=== PATIENT | male | born 1950 | race Caucasian/White ===

== ENCOUNTER → 2017-01-03 | Outpatient (CLI) | payer OTHER | LOC: ULTRA 08:01 | DX: R16.2 Hepatomegaly with splenomegaly, not elsewhere classified (principal); K76.89 Other specified diseases of liver ==

== ENCOUNTER → 2017-01-16 | Outpatient (CLI) | payer OTHER | LOC: CAT 08:57 | DX: K76.89 Other specified diseases of liver (principal) ==

== ENCOUNTER 2017-06-05 19:44 | Inpatient (IN) | payer OTHER ==
[~2017-06-05] VITALS: Ht 175.3 cm; Wt 102.6 kg
--- NOTE | ~2017-06-05 | EKG ---
[address] [place] [address] ELECTROCARDIOGRAM REPORT Name: TOGRACIA Parekh Room #: 210-P ADM IN M.R.#: [id number] Admission: 06/05/17 Attend Phys: Andrey Walsh MD Discharge: Date of : 54 Report #: [id number] THIS REPORT FOR: //name// [facility] Test Date: 2017-06-06 Test Time: 06:17:44 Pat Name: GRACIA ARIZA Department: Room: 210 P Gender: M Risk Consulting Treasury Director: AVELINA : 1950 Requested By: Guerda Klein Order Number: [id number] MD: Kyrie Mckenzie Measurements Intervals [place] Rate: 83 P: 76 VT: 217 QRS: -53 QRSD: 150 T: 98 QT: 434 QTc: 510 Interpretive Statements Sinus rhythm Borderline prolonged [place] interval RBBB and LAFB No previous ECG available for comparison Electronically Signed On 06-07-2017 7:37:16 ACUTE CARE NURSING ASSISTANT by Kyrie Mckenzie [email or web address] <ELECTRONICALLY SIGNED> By: Kyrie Mckenzie MD, [facility] 06/07/17 0737 0617 6 Kyrie Mckenzie MD, FACC /EPI
--- NOTE | ~2017-06-05 | EKG ---
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: YANIQUE : 1950 Requested By: Andriy Dillard Order Number: [id number] MD: Kyrie Mckenzie Measurements Intervals [place] Rate: 94 P: 95 MO: 218 QRS: -58 QRSD: 139 T: 93 QT: 393 QTc: 492 Interpretive Statements Sinus rhythm Prolonged [place] interval RBBB and LAFB Nonspecific T abnormalities, lateral leads Baseline wander in lead(s) V4 No previous ECG available for comparison Electronically Signed On 06-06-2017 9:27:24 SURVEYING TECHNICIAN by Kyrie Mckenzie [email or web address] <ELECTRONICALLY SIGNED> By: Kyrie Mckenzie MD, [facility] 12/926 46 46 Kyrie Mckenzie MD, [facility] /EPI
--- NOTE | ~2017-06-05 | 2DMMODE ---
[facility] [address] [place] [address] 2 D/M-MODE ECHOCARDIOGRAM Name: GRACIA ARIZA Room #: 210-P [facility] IN [facility]#: [id number] Admission: 06/05/17 Attend Phys: Andrey Walsh MD Discharge: Date of : 54 Date of Service: 06/06/17 1725 Report #: [id number] THIS REPORT FOR: //name// APPROVED REPORT Study performed: 06/06/2017 15:10:46 EXAM: Comprehensive 2D, Doppler, and color-flow Echocardiogram Patient Location: Bedside Room #: 210 BSA: 2.18 HR: 90 bpm BP: 120/55 mmHg Other Information Study Quality: Adequate Indications CAD Chest Pain 2D Dimensions RVDd: 39.64 mm LVEF(%): 13.66 (>50%) IVSd: 10.60 (7-11mm) LVOT Diam: 23.94 (18-24mm) LVDd: 60.08 mm PWd: 10.79 (7-11mm) Ascending Ao: 31.84 (22-36mm) LVDs: 56.35 (25-40mm) Aortic Root: 33.11 mm IVC: 21.00 mm Goetz's LVEF: 13.66 % Volumes Left Atrial Volume (Systole) Single Plane 4CH: 54.47 mL Single Plane 2CH: 76.80 mL LA ESV Index: 32.00 mL/m2 Aortic Valve AoV Peak Zoltan.: 1.94 m/s AO Peak Gr.: 15.13 mmHg LVOT Max P.73 mmHg LVOT Max V: 1.30 m/s KATJA Vmax: 3.00 cm2 Mitral Valve E/A Ratio: 1.1 MV Decel. Time: 211.97 ms [facility] [address] [place] [address] 2 D/M-MODE ECHOCARDIOGRAM Name: GRACIA ARIZA Room #: 210-[facility]#: [id number] Admission: 06/05/17 Attend Phys: Andrey Walsh MD Discharge: Date of : 54 Date of Service: 06/06/17 1725 Report #: [id number] MV E Max Zoltan.: 1.05 m/s MV A Zoltan.: 0.97 m/s MV PHT: 61.47 ms IVRT: 87.66 ms Pulmonary Valve PV Peak Zoltan.: 1.19 m/s PV Peak Gr.: 5.63 mmHg Pulmonary Vein P Vein S: 0.69 m/s P Vein A: 0.31 m/s P Vein D: 0.36 m/s P Vein A Dur.: 106.1 msec P Vein S/D Ratio: 1.92 Tricuspid Valve TR Peak Zoltan.: 2.75 m/s TR Peak Gr.: 30.33 mmHg PA Pressure: 40.00 mmHg Left Ventricle Left ventricle is mildly dilated. There is normal left ventricular wall thickness. Left ventricular systolic function is mild to moderately decreased. LVEF is 40%. This study is not technically sufficient to allow evaluation of the LV diastolic function. Right Ventricle Right ventricle is at the upper limits of normal. The right ventricular systolic function is normal. Atria Left atrium is at the upper limits of normal. The right atrium size is normal. Aortic Valve The aortic valve is normal in structure. Aortic valve is calcified. No aortic regurgitation is present. There is no aortic valvular stenosis. Mitral Valve The mitral valve is normal in structure. Mild to moderate mitral regurgitation. No evidence of mitral valve stenosis. Tricuspid Valve The tricuspid valve is normal in structure. There is trace to mild tricuspid regurgitation. Estimated PAP 40 mmHg. There is mild-moderate pulmonary hypertension. [facility] [address] [place] [address] 2 D/M-MODE ECHOCARDIOGRAM Name: GRACIA ARIZA Room #: 210-P [facility] IN [facility]#: [id number] Admission: 06/05/17 Attend Phys: Andrey Walsh MD Discharge: Date of : 54 Date of Service: 06/06/17 9385 Report #: [id number] Pulmonic Valve The pulmonary valve is normal in structure. Trace pulmonic regurgitation. Great Vessels The aortic root is normal in size. IVC is dilated and collapses >50% with inspiration. Pericardium There is no pericardial effusion. <Conclusion> Left ventricle is mildly dilated. Left ventricular systolic function is mild to moderately decreased. Right ventricle is at the upper limits of normal. Left atrium is at the upper limits of normal. The aortic valve is normal in structure. Aortic valve is calcified. Mild to moderate mitral regurgitation. <ELECTRONICALLY SIGNED> By: Milan Han MD 06/06/171724 24 24 Milan Han MD /INF
--- NOTE | ~2017-06-05 | CATHLAB ---
[facility] [place] [address] INVASIVE PROCEDURE REPORT Name: TOGRACIA Izabella Room #: 210-P [facility] IN [facility]#: [id number] Admission: 06/05/17 Attend Phys: Andrey Walsh MD Discharge: Date of : 54 Date of Service: 06/06/17 1738 Report #: [id number] THIS REPORT FOR: //name// APPROVED REPORT Patient Details Patient Status: Out-Patient Room #: The patient is a 67 year-old male Event Personnel Milan Han Resume Writer, Nicolasa Agudelo CVT Monitor, Junior Joy RN, Sachin Almanza Procedures Performed Left Heart Cath w/or w/o Coronaries [id number] [facility] BMS Revasc Grafts Single DIAG [id number] Indication Non-STEMI , Dyspnea, Unstable angina , Chest pain Risk Factors Obesity, Hypercholesterolemia, Hypertension, Tobacco History (), Dialysis Procedure Narrative The Right Groin^ was infiltrated with subcutaneous anesthesia. A PINNACLE 6FR Sheath #[id number] sheath was inserted into the RFA 4 FR^. Coronary angiography was performed using coronary diagnostic catheters. The right coronary system was accessed and visualized with a JR4 catheter. The left coronary system was accessed and visualized with a JL4 catheter. The left ventricle was accessed and visualized with a PIGTAIL catheter. Left ventricular/Aortic Valve gradient assessed via catheter pullback. Closure device was deployed with a 6 Fr Euphora NC RX 2.5 x 12 #[id number]. The patient tolerated the procedure well and there were no complications associated with the procedure. There was no hematoma. Intraoperative Conscious Sedation Sedation start time: 12.23 Case end Time: 13.09 Fentanyl mcg Versed mg Fluoro Time: 8.40 minutes Dose: DAP 26920.84 cGycm2 1589 mGy Contrast Type and Amount: Visipaque 190 ml [facility] [place] [address] INVASIVE PROCEDURE REPORT Name: GRACIA ARIZA Room #: 210-P [facility] IN ..#: [id number] Admission: 06/05/17 Attend Phys: Andrey Walsh MD Discharge: Date of : 54 Date of Service: 06/06/17 1738 Report #: [id number] Coronary Angiography The patient's coronary anatomy is right dominant. Diagnostic Cath Left Main Patent vessel, with no flow-limiting lesions. LAD Patent vessel, with mild diffuse disease in the proximal segment, 20%. Diagonal 1 Moderate size caliber vessel, supplies 2 branches as it travels down the anterolateral wall. There is a severe, discrete stenosis in the proximal segment, 80%. Circumflex Patent vessel, no flow limiting lesions. OM1 Small-caliber vessel, with no flow-limiting lesions. OM2 Moderate size caliber vessel, with no flow-limiting lesions. Right Coronary Dominant vessel, with no flow-limiting lesions. R PDA Patent vessel, with no flow-limiting lesions. RPLV Patent vessel, with no flow-limiting lesions. Left Ventriculography Left Ventriculography was not performed. Ejection Fraction was 40-45% based off patient's Echocardiogram. An LVEDP was measured and there is no gradient across the LVOT. Hemodynamics The aortic pressure is 110/62 mmHg with a mean of 78 mmHg. The left ventricular pressure is 116/11 mmHg with a mean of mmHg. The left ventricular end diastolic pressure is 23 mmHg. PCI Technique Lesion Anticoagulation was achieved with Heparin. Patient was preloaded with Plavix. Percutaneous coronary intervention was performed on the first diagnonal branch segment. The lesion stenosis prior to intervention was 80% with BETY 3 flow. A LAUNCHER 6FR EBU 3.5 #[id number] Guide Catheter was used to engage the LCA ostium. A Luge Wire .014 x 182CM #[id number] Interventional Guidewire was used to cross the lesion. BALLOON DILATION A Balloon catheter Simpleephora RX 2.5 x 12 #[id number] was inserted and inflated up to 8.00atm for 19seconds. Additional Inflation: 12.00atm for 35seconds. STENT DEPLOYMENT [facility] [address] [place] [address] INVASIVE PROCEDURE REPORT Name: GRACIA ARIZA Room #: 210-P [facility] IN [facility]#: [id number] Admission: 06/05/17 Attend Phys: Andrey Walsh MD Discharge: Date of : 54 Date of Service: 06/06/17 1738 Report #: [id number] A bare metal stent INTEGRITY RX 2.5 X 18 #[id number] was inserted and inflated up to 12.00atm for 35seconds. POST STENT DEPLOYMENT BALLOON DILATION A Balloon catheter Euphora NC RX 2.5 x 12 #[id number] was inserted and inflated up to 18.00atm for 18seconds. Final angiography reveals 0 % stenosis with BETY 3 flow. Conclusion 1. Successful insertion of a bare metal stent into the proximal segment of the first diagonal artery. 2. Right dominant system. 3. Recommend dual antiplatelet therapy. <ELECTRONICALLY SIGNED> By: Milan Han MD 06/06/178 37 37 Milan Han MD /INF
--- NOTE | ~2017-06-05 | HC ---
[facility] [place] [address] CONSULTATION Name: GRACIA ARIZA Room #: 210-P [facility] IN ..#: [id number] Admission: 06/05/17 Attend Phys: Andrey Walsh MD Discharge: Date of : 54 Report #: [id number] THIS REPORT FOR: //name// CC: [facility] physician/PCP Andrey Walsh DATE OF SERVICE: 06/06/2017 REASON FOR CONSULTATION: End-stage renal disease. HISTORY OF PRESENT ILLNESS: A 67-year-old patient well known to us after many years on dialysis, developed crushing chest pain yesterday, which persisted. He came to the Emergency Room, relieved somewhat by nitro, has recurred again today. Chest x-ray was clear, but troponin is elevating and he was hyperkalemic. PAST MEDICAL HISTORY: Polycystic kidney disease, end-stage renal disease, initiated dialysis 13 years ago. No previous coronary history. HOME MEDICATIONS: Aspirin 81 mg daily, Sensipar 30 mg daily, Rosalind-Rebeca 1 daily, hydrocodone p.r.n., Renvela 800 mg with meals t.i.d., warfarin 5 mg daily. SOCIAL HISTORY: Smokes 1 pack per day. His recently , he has been very depressed about that, she had been sick for some time. REVIEW OF SYSTEMS: GENERAL: He has been depressed and not feeling particularly well, but this is the first bit of chest pain he has had. EYES: Okay. ENT: Hearing okay, swallows okay. No mouth sores or ulcers. ENDOCRINE: No diabetes or thyroid disease. RESPIRATORY: He is not easily winded, but does not exert. CARDIAC: Chest pains as mentioned. No previous history of heart failure or palpitations. GASTROINTESTINAL: No nausea, vomiting or diarrhea. GENITOURINARY: He is making virtually no urine. PSYCHIATRIC: He has been depressed since the of his . NEUROLOGIC: No seizure, syncope, stroke. He does have some neuropathy symptoms. Extensive history taken from the patient at the bedside. PHYSICAL EXAMINATION: GENERAL: This is a reasonably well-appearing gentleman, in very mild distress. SKIN: Unremarkable. SKELETAL: Somewhat overweight. HEENT: Extraocular movements are full. Vision is intact. Hearing is intact. Mucous membranes moist. Tongue and buccal mucosa benign. [address] [address] CONSULTATION Name: GRACIA ARIZA Room #: 210-[facility]#: [id number] Admission: 06/05/17 Attend Phys: Andrey Walsh MD Discharge: Date of : 54 Report #: [id number] NECK: Supple, no carotid bruits. CHEST: Clear to auscultation. HEART: Regular. ABDOMEN: Soft, nontender without bruits, masses or organomegaly. EXTREMITIES: Show peripheral pulses slightly diminished. NEUROLOGIC: Grossly intact. LABORATORY DATA: Hemoglobin 11. Sodium 138, potassium was 6.4, down to 5.1 with treatment, chloride 95, bicarbonate 28, phosphorus 7.6. ASSESSMENT AND PLAN: 1. Acute coronary syndrome. Troponin up, crushing chest pain, multiple risk factors including smoking, longstanding dialysis. 2. End-stage renal disease, on dialysis for 13 years. 3. Cigarette smoking, a pack a day for many years. 4. History of polycystic kidney disease, status post bilateral nephrectomies. By: 0830 0951 Zac Bernstein MD /nt
[2017-06-05 19:45] VITALS: BP 152/67
[2017-06-05] MEDS ORDERED: COUMADIN 5 MG TA5 M1 PO (20:05)
[2017-06-05] MEDS ORDERED: RENAL-VITE TAB0.8 MG PO (20:06)
[2017-06-05] MEDS ORDERED: SENSIPAR 30 MG30 MG PO (20:07)
[2017-06-05] MEDS ORDERED: PROBIOTIC1 EAC1 PO (20:08)
[2017-06-05] MEDS ORDERED: RENVELA800 MG PO (20:08)
[2017-06-05] MEDS ORDERED: NORCO 5-325 TA1 EACH PO (20:08)
[2017-06-05] MEDS ORDERED: HEARTBURN RELIE75 MG PO (20:08)
[2017-06-05] MEDS ORDERED: ASPIR 8181 MG PO (20:09)
[2017-06-05] MEDS ORDERED: HYDROCODONE-AP1 EAC6 PO (20:09)
[2017-06-05] MEDS ORDERED: SLEEP AID25 M1 PO (20:09)
[2017-06-05] MEDS ORDERED: ADVIL200 M3 PO (20:10)
[2017-06-05 20:15] VITALS: BP 157/80
[2017-06-05 20:21] LABS: HEMATOCRIT 37.1 % (42.0-52.0); HEMOGLOBIN 12.3 gm/dL (14.0-18.0); MANUAL DIFF YES; MCH 31.1 pg (26.0-34.0); MCHC 33.2 g/dL (28.0-37.0); MCV 93.8 fL (80.0-100.0); PLATELET COUNT 182 thou/uL (150-400); RBC 3.96 mil/uL (4.50-6.00); RDW 16.2 % (10.5-14.5); WBC 8.5 thou/uL (4.0-11.0)
[2017-06-05 20:23] LABS: CALCIUM 9.2 mg/dL (8.5-10.1); CREATININE 9.1 mg/dL (0.7-1.3)
[2017-06-05 20:24] LABS: POTASSIUM 6.4 mmol/L (3.5-5.1)
[2017-06-05 20:29] LABS: PROTIME 10.7 Seconds (9.3-11.4)
[2017-06-05 20:32] LABS: ALBUMIN 3.5 g/dL (3.4-5.0); TOTAL BILIRUBIN 0.4 mg/dL (<0.1-1.0); TOTAL PROTEIN 7.8 g/dL (6.4-8.2); TROPONIN-I 0.15 ng/mL (<0.06)
[2017-06-05 21:11] LABS: TOTAL CELL COUNT 100
[2017-06-05 21:12] LABS: ANISOCYTOSIS 1+; POLYCHROMASIA OCCASIONAL
[2017-06-05 21:45] VITALS: BP 114/62
[2017-06-05 22:03] VITALS: BP 120/36
[2017-06-05 23:05] VITALS: BP 128/60
[2017-06-06] VITALS (11 sets, daily range): BP systolic 108–152; BP diastolic 38–53
[2017-06-06 06:52] LABS: HEMATOCRIT 32.7 % (42.0-52.0); MCH 31.6 pg (26.0-34.0); MCHC 33.6 g/dL (28.0-37.0); MCV 93.9 fL (80.0-100.0); RBC 3.49 mil/uL (4.50-6.00); WBC 6.4 thou/uL (4.0-11.0)
[2017-06-06 07:16] LABS: INR 1.1; PROTIME 10.8 Seconds (9.3-11.4)
[2017-06-06 07:40] LABS: ALBUMIN 3.2 g/dL (3.4-5.0); ANION GAP 15 mmol/L (7-16); BUN 58 mg/dL (7-18); CALCIUM 8.7 mg/dL (8.5-10.1); CHLORIDE 95 mmol/L (98-107); CO2 28 mmol/L (21-32); GLUCOSE 104 mg/dL (74-106); PHOSPHORUS 7.6 mg/dL (2.5-4.9); POTASSIUM 5.1 mmol/L (3.5-5.1); SODIUM 138 mmol/L (136-145)
[2017-06-06 07:42] LABS: TROPONIN-I 0.73 ng/mL (<0.06)
[2017-06-06 07:53] LABS: CHOLESTEROL 127 mg/dL (<200); HDL CHOLESTEROL 38 mg/dL (>40); LDL CHOLESTEROL 69 mg/dL (<100); TC:HDL 3.3 Ratio (Not establshd); TRIGLYCERIDE 102 mg/dL (<150); VLDL 20 mg/dL (<40)
[2017-06-07 03:04] VITALS: BP 129/66
[2017-06-07 03:42] VITALS: BP 129/66
[2017-06-07 03:43] LABS: HEMATOCRIT 32.5 % (42.0-52.0); MCH 31.8 pg (26.0-34.0); MCV 93.5 fL (80.0-100.0); RBC 3.48 mil/uL (4.50-6.00); RDW 16.4 % (10.5-14.5); WBC 7.5 thou/uL (4.0-11.0)
[2017-06-07 03:46] LABS: CALCIUM 7.9 mg/dL (8.5-10.1); POTASSIUM 5.3 mmol/L (3.5-5.1)
[2017-06-07 03:53] LABS: CREATININE 6.5 mg/dL (0.7-1.3)
[2017-06-07 08:05] VITALS: BP 106/51
[2017-06-07] MEDS ORDERED: PLAVIX 75 MG TA75 M1 PO (08:46)
[2017-06-07] MEDS ORDERED: METOPROLOL SUCC25 M1 PO (08:47)
[2017-06-07] MEDS ORDERED: LIPITOR 20 MG T20 M1 PO (08:47)
[2017-06-07] MEDS ORDERED: ASPIRIN325 PO (08:47)
[2017-06-07 09:33] VITALS: BP 106/51
== END 2017-06-07 11:50 | disposition home or self-care (01) | DRG 248 ==
LOC: ER 19:44 → 2N 21:30 → EROBS 21:30 → 2N 22:14
PROVIDERS: Hospitalist; Nurse Practitioner Family; Physician Assistant
PROC: 02703DZ Dilation of Coronary Artery, One Artery with Intraluminal Device, Percutaneous Approach (ICD-10-PCS; principal; 2017-06-06)
PROC: 4A023N7 Measurement of Cardiac Sampling and Pressure, Left Heart, Percutaneous Approach (ICD-10-PCS; principal; 2017-06-06)
PROC: B2111ZZ Fluoroscopy of Multiple Coronary Arteries using Low Osmolar Contrast (ICD-10-PCS; principal; 2017-06-06)
DX: I21.4 Non-ST elevation (NSTEMI) myocardial infarction (principal); N18.6 End stage renal disease; E87.5 Hyperkalemia; F17.210 Nicotine dependence, cigarettes, uncomplicated; I24.9 Acute ischemic heart disease, unspecified; K21.9 Gastro-esophageal reflux disease without esophagitis; I25.10 Atherosclerotic heart disease of native coronary artery without angina pectoris; Z99.2 Dependence on renal dialysis; Z90.5 Acquired absence of kidney; Z90.49 Acquired absence of other specified parts of digestive tract
CPT/HCPCS: 10081; 32100

== ENCOUNTER 2017-06-15 11:00 | Emergency (ER) | payer OTHER ==
[~2017-06-15] VITALS: Ht 170.2 cm; Wt 105.7 kg
--- NOTE | ~2017-06-15 | EKG ---
[facility] [place] [employer] [place] [address] ELECTROCARDIOGRAM REPORT Name: TOGRACIA Parekh Room #: [facility] [place]#: [id number] Admission: 06/15/17 Attend Phys: Discharge: 06/15/17 Date of : 54 Report #: [id number] THIS REPORT FOR: //name// [facility] ED Test Date: 2017-06-15 Test Time: 11:03:22 Pat Name: GRACIA ARIZA Department: Room: Gender: Hvac Field Service Technician: Leigh HINKLE : 1950 Requested By: Marvel Jurado Order Number: [id number] MD: Kyrie Mckenzie Measurements Intervals [place] Rate: 47 P: 51 WV: 206 QRS: -55 QRSD: 153 T: -62 QT: 497 QTc: 440 Interpretive Statements Sinus bradycardia Premature ventricular complexes Leftward axis Left bundle branch block Compared to ECG 06/06/2017 06:17:44 Ventricular premature complex(es) now present Electronically Signed On 06-17-2017 13:55:51 AUTOMOBILE TECHNICIAN by Kyrie Mckenzie [email or web address] <ELECTRONICALLY SIGNED> By: Kyrie Mckenzie MD, [facility] 06/17/17 1355 02 02 Kyrie Mckenzie MD, FACC /EPI
--- NOTE | ~2017-06-15 | EKG ---
[facility] [place] [address] ELECTROCARDIOGRAM REPORT Name: GRACIA ARIZA Room #: [facility] Fer[place]#: [id number] Admission: 06/15/17 Attend Phys: Discharge: 06/15/17 Date of : 54 Report #: [id number] THIS REPORT FOR: //name// [facility] ED Test Date: 2017-06-15 Test Time: 11:28:24 Pat Name: GRACIA ARIZA Department: Room: Gender: Wardrobe Assistant: OMAR : 1950 Requested By: Marvel Jurado Order Number: [id number] MD: Kyrie Mckenzie Measurements Intervals [place] Rate: 55 P: 47 VA: 213 QRS: -52 QRSD: 149 T: -59 QT: 533 QTc: 510 Interpretive Statements Sinus rhythm Borderline prolonged [place] interval Leftward axis Left bundle branch block Compared to ECG 06/06/2017 06:17:44 Premature ventricular complexes no longer present Electronically Signed On 06-17-2017 13:58:15 RADIOLOGY RN by Kyrie Mckenzie [email or web address] <ELECTRONICALLY SIGNED> By: Kyrie Mckenzie MD, [facility] 06/17/17 1358 1128 112 Kyrie Mckenzie MD, [facility] /EPI
[~2017-06-15 11:00] MED LIST: ADVIL200 M3 PO; ASPIR 8181 MG PO; ASPIRIN325 PO; COUMADIN 5 MG TA5 M1 PO; HEARTBURN RELIE75 MG PO; HYDROCODONE-AP1 EAC6 PO; LIPITOR 20 MG T20 M1 PO; METOPROLOL SUCC25 M1 PO; NORCO 5-325 TA1 EACH PO; PLAVIX 75 MG TA75 M1 PO; PROBIOTIC1 EAC1 PO; RENAL-VITE TAB0.8 MG PO; RENVELA800 MG PO; SENSIPAR 30 MG30 MG PO; SLEEP AID25 M1 PO
[2017-06-15] MEDS ORDERED: AMBIEN 5 MG TABL5 M1 PO (11:15)
[2017-06-15 11:30] LABS: ABSOLUTE NEUTROPHILS 5.5 thou/uL (1.4-8.2); BASOPHILS 0.9 % (0.0-2.0); EOSINOPHILS 4.7 % (0.0-3.0); HEMATOCRIT 35.9 % (42.0-52.0); HEMOGLOBIN 12.1 gm/dL (14.0-18.0); LYMPHOCYTES 17.2 % (24.0-44.0); MCH 31.4 pg (26.0-34.0); MCHC 33.6 g/dL (28.0-37.0); MCV 93.4 fL (80.0-100.0); MONOCYTES 7.5 % (1.0-8.0); PLATELET COUNT 161 thou/uL (150-400); POLYS 69.7 % (36.0-66.0); RBC 3.85 mil/uL (4.50-6.00); RDW 15.5 % (10.5-14.5); WBC 7.9 thou/uL (4.0-11.0)
[2017-06-15 11:36] LABS: ANION GAP 13 mmol/L (7-16); BUN 80 mg/dL (7-18); CALCIUM 8.2 mg/dL (8.5-10.1); CHLORIDE 96 mmol/L (98-107); CO2 27 mmol/L (21-32); CREATININE 10.5 mg/dL (0.7-1.3); GLUCOSE 152 mg/dL (74-106); SODIUM 136 mmol/L (136-145)
[2017-06-15 11:38] LABS: POTASSIUM 6.1 mmol/L (3.5-5.1)
[2017-06-15 11:45] LABS: ALBUMIN 3.3 g/dL (3.4-5.0); LIPASE 496 U/L (73-393); SGOT 16 U/L (15-37); SGPT 17 U/L (30-65); TOTAL BILIRUBIN 0.6 mg/dL (<0.1-1.0); TOTAL PROTEIN 7.2 g/dL (6.4-8.2); TROPONIN-I < 0.04 ng/mL (<0.06)
[2017-06-15 11:46] LABS: APTT 26.5 Seconds (24.5-32.8); INR 1.1; PROTIME 11.7 Seconds (9.3-11.4)
[2017-06-15 14:12] VITALS: BP 116/50
== END 2017-06-15 14:13 | disposition home or self-care (01) ==
LOC: ER 11:00
PROVIDERS: Physician Assistant
DX: R06.02 Shortness of breath (principal); N18.6 End stage renal disease; E87.5 Hyperkalemia; F17.210 Nicotine dependence, cigarettes, uncomplicated; Z90.49 Acquired absence of other specified parts of digestive tract; Z99.2 Dependence on renal dialysis

== ENCOUNTER 2019-11-06 10:20 | Emergency (ER) | payer OTHER ==
[~2019-11-06] VITALS: Ht 170.2 cm; Wt 91.6 kg
[~2019-11-06 10:20] MED LIST changes: +AMBIEN 5 MG TABL5 M1 PO
[2019-11-06 10:56] LABS: ABSOLUTE NEUTROPHILS 3.6 thou/uL (1.4-8.2); BASOPHILS 0.9 % (0.0-2.0); EOSINOPHILS 9.3 % (0.0-3.0); HEMATOCRIT 35.9 % (42.0-52.0); HEMOGLOBIN 11.9 gm/dL (14.0-18.0); LYMPHOCYTES 19.2 % (24.0-44.0); MCH 29.7 pg (26.0-34.0); MCHC 33.1 g/dL (28.0-37.0); MCV 89.8 fL (80.0-100.0); POLYS 60.6 % (36.0-66.0); WBC 5.9 thou/uL (4.0-11.0)
[2019-11-06] MEDS ORDERED: CHILDREN'S ASPI81 M1 PO (10:56)
[2019-11-06] MEDS ORDERED: NITROSTAT0.4 M1 SUBLING (10:58)
[2019-11-06] MEDS ORDERED: OMEPRAZOLE 20 M20 M1 PO (10:58)
[2019-11-06] MEDS ORDERED: COLACE100 MG PO (10:58)
[2019-11-06 10:59] LABS: ANION GAP 10 mmol/L (7-16); BUN 33 mg/dL (7-18); CALCIUM 7.8 mg/dL (8.5-10.1); CHLORIDE 94 mmol/L (98-107); CO2 29 mmol/L (21-32); CREATININE 6.3 mg/dL (0.7-1.3); GLUCOSE 106 mg/dL (74-106); POTASSIUM 4.8 mmol/L (3.5-5.1); SODIUM 133 mmol/L (136-145)
[2019-11-06] MEDS ORDERED: RENVELA800 MG PO (10:59)
[2019-11-06 11:01] LABS: APTT 29.3 Seconds (24.5-32.8); INR 1.1; PROTIME 11.4 Seconds (9.3-11.4)
[2019-11-06 11:09] LABS: ALBUMIN 3.3 g/dL (3.4-5.0); SGOT 17 U/L (15-37); SGPT 7 U/L (30-65); TOTAL BILIRUBIN 0.6 mg/dL (<0.1-1.0); TOTAL PROTEIN 7.7 g/dL (6.4-8.2); TROPONIN-I <0.06 ng/mL (<0.06)
[2019-11-06 11:56] LABS: PLATELET COUNT 116 thou/uL (150-400)
[2019-11-06 13:47] VITALS: BP 102/29
--- NOTE | 2019-11-07 08:44 | EKG ---
[facility] [place] [address] ELECTROCARDIOGRAM REPORT Name: GRACIA ARIZA Room #: DEP [facility]#: [id number] Admission: 11/06/19 Attend Phys: Discharge: 11/06/19 Date of : 54 Report #: [id number] THIS REPORT FOR: cc: [facility] - Clinic physician unknown [facility] - Clinic physician unknown Kyrie Mckenzie MD [facility] THIS REPORT FOR: //name// [facility] ED Test Date: 2019-11-06 Test Time: 10:46:49 Pat Name: GRACIA ARIZA Department: Room: Gender: M 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: : 1950 Requested By: Fabian Munoz Order Number: [id number] MD: Kyrie Mckenzie Measurements Intervals [place] Rate: 80 P: 50 UT: 237 QRS: -61 QRSD: 145 T: 101 QT: 439 QTc: 507 Interpretive Statements Sinus rhythm Paired ventricular premature complexes Prolonged [place] interval LAFB Nonspecific intraventricular conduction delay Compared to ECG 06/15/2017 11:28:24 Ventricular premature complex(es) now present Electronically Signed On 11-07-2019 8:42:22 CDT by Kyrie Mckenzie [email or web address] <ELECTRONICALLY SIGNED> By: Kyrie Mckenzie MD, FACC 11/07/19 0842 1046 1046 Kyrie Mckenzie MD, [facility] /EPI
== END 2019-11-06 13:48 | disposition left against medical advice (07) ==
LOC: ER 10:20
PROVIDERS: Emergency Medicine
DX: H54.62 Unqualified visual loss, left eye, normal vision right eye (principal); R20.0 Anesthesia of skin; R53.1 Weakness; N18.6 End stage renal disease; F17.210 Nicotine dependence, cigarettes, uncomplicated; Z90.49 Acquired absence of other specified parts of digestive tract; Z99.2 Dependence on renal dialysis